=== PATIENT | male | born 1980 | race Caucasian/White ===

== ENCOUNTER → 2017-03-12 | Outpatient (CLI) | payer BC | LOC: MHCPAIN 15:37 | DX: G89.29 Other chronic pain (principal); M47.812 Spondylosis without myelopathy or radiculopathy, cervical region; R51 Headache; G56.20 Lesion of ulnar nerve, unspecified upper limb | CPT/HCPCS: G0463 ==

== ENCOUNTER → 2017-04-10 | Outpatient (CLI) | payer BC | LOC: MHCPAIN 11:52 | DX: M47.814 Spondylosis without myelopathy or radiculopathy, thoracic region (principal); M51.24 Other intervertebral disc displacement, thoracic region ==

== ENCOUNTER → 2017-04-18 | Outpatient (CLI) | payer BC | LOC: MHCPAIN 12:06 | DX: G89.29 Other chronic pain (principal); M47.814 Spondylosis without myelopathy or radiculopathy, thoracic region; M79.2 Neuralgia and neuritis, unspecified | CPT/HCPCS: G0463 ==

== ENCOUNTER → 2017-05-08 | Outpatient (CLI) | payer BC | LOC: MHCPAIN 08:16 | DX: M47.814 Spondylosis without myelopathy or radiculopathy, thoracic region (principal); M51.24 Other intervertebral disc displacement, thoracic region ==

== ENCOUNTER → 2017-05-14 | Outpatient (CLI) | payer BC | LOC: MHCPAIN 08:20 | DX: G89.29 Other chronic pain (principal); M50.90 Cervical disc disorder, unspecified, unspecified cervical region; M47.814 Spondylosis without myelopathy or radiculopathy, thoracic region | CPT/HCPCS: G0463 ==

== ENCOUNTER → 2017-06-05 | Outpatient (CLI) | payer BC | LOC: MHCPAIN 09:57 | DX: M47.814 Spondylosis without myelopathy or radiculopathy, thoracic region (principal); M51.24 Other intervertebral disc displacement, thoracic region | CPT/HCPCS: J1100; J2250; J3010 ==

== ENCOUNTER → 2018-09-15 | Outpatient (CLI) | payer BC | LOC: COL.RAD 09:00 | DX: M25.511 Pain in right shoulder (principal) ==